=== PATIENT | female | born 1955 | race Caucasian/White ===

== ENCOUNTER 2016-07-18 10:39 | Day surgery (SDC) | payer OTHER ==
[~2016-07-18] VITALS: Ht 167.6 cm; Wt 82.5 kg
[~2016-07-18 10:39] MED LIST: OMEP20CA11 PO; Sodium Chloride LOK Flush 10 mL Syringe IV PRN; fentaNYL-PF 50 mCg/mL 2 mL Inj IVPUSH PRN
[2016-07-18] MEDS ORDERED: fentaNYL-PF 50 mCg/mL 2 mL Inj IVPUSH ONE (10:40)
[2016-07-18 11:00] VITALS: BP 119/75; PULSE 59; RESP 16; O2SAT 100
[2016-07-18] MEDS: 0.9% Sodium Chloride 1,000 ML IV SCH ×2 (11:05→11:35)
[2016-07-18 12:10] VITALS: BP 106/66; PULSE 57; RESP 16; O2SAT 92
[2016-07-18 12:20] VITALS: BP 95/58; PULSE 74; RESP 16; O2SAT 99
[2016-07-18 12:28] VITALS: BP 108/69; PULSE 60; RESP 16; O2SAT 99
--- NOTE | 2016-07-19 06:57 | ENDO ---
[address] [address] ENDOSCOPY PROCEDURE PATIENT: ROSHNI MUHAMMAD : 1955 MR#: [id number] ADMIT: 07/18/2016 JOB ID: [id number] DATE OF SERVICE: 07/18/2016 TYPE OF OPERATION: Esophagogastroduodenoscopy with biopsy. PREOPERATIVE DIAGNOSIS(ES): Dysphagia. POSTOPERATIVE DIAGNOSIS(ES): 1. Mild nonerosive gastritis. 2. Status post Chen fundoplication on retroflexion. 3. Mild bile reflux. ANESTHESIA: Fentanyl 100 mcg and Versed 5 mg IV administered. COMPLICATIONS: None. BLOOD LOSS: Minimal. DESCRIPTION OF PROCEDURE: After risks and benefits explained to the patient, informed consent was obtained. After anesthesia administered, upper endoscope was then inserted into the mouth, intubating into the esophagus, stomach, second portion of duodenum. Mucosa carefully examined. After procedure was done, the scope withdrawn and procedure terminated. FINDINGS: Upon inspection of the esophagus, the esophagus was normal without masses, ulcers, or lesions. There were no strictures or rings or concentric rings that was seen. Z-line located at 40 cm from incisors. Upon entering stomach, there was mild bile reflux that was seen. Mild nonerosive gastritis was also seen. No masses, ulcers, or lesions were recognized. Retroflexion showed status post Chen fundoplication intact. Duodenal bulb, first and second portions were normal. Biopsies were taken from duodenum, antrum, body, mid and distal esophagus. IMPRESSION: 1. Status post Chen fundoplication, intact. 2. Mild nonerosive gastritis. 3. Mild bile reflux. RECOMMENDATION: 1. Await pathology results. 2. Follow up in GI clinic as needed. 3. Referral to Speech and Swallow therapy for dysphagia.
--- NOTE | 2016-07-21 18:22 | PATH ---
SURGICAL PATHOLOGY Attending Physician:Anthony Guillermo MD CASE STATUS: Signed Out PATIENT NAME: ROSHNI MUHAMMAD PID: [id number] : 1955 DATE COLLECTED:07/18/2016 22:19 SPECIMEN: 1: Duodenum, Biopsy 2: Stomach, Antrum, Biopsy 3: Gastric, Biopsy 4: Esophagus, Biopsy 5: Esophagus, Biopsy CLINICAL HISTORY: 1). DUODENUM BIOPSY 2). ANTRUM BIOPSY 3). GASTRIC BODY BIOPSY 4). DISTAL ESOPHAGUS BIOPSY 5). MID-ESOPHAGEAL BIOPSY FINAL DIAGNOSIS: 1. Duodenum, Biopsy: Superficial portions of duodenal mucosa with no diagnostic abnormality. Negative for active inflammation, features of sprue, dysplasia, or malignancy. 2. Antrum Biopsy: Portions of gastric antral-type mucosa with no diagnostic abnormality. No definite H. pylori organisms identified by H&E stain. Negative for intestinal metaplasia, dysplasia, and malignancy. 3. Gastric Body, Biopsy: Portions of gastric body-type mucosa with no diagnostic abnormality. No definite H. pylori organisms identified by H&E stain. Negative for intestinal metaplasia, dysplasia, and malignancy. 4. Distal Esophagus, Biopsy: Portion of squamous mucosa with no diagnostic abnormality. Negative for dysplasia and malignancy. Detached fragment of inflamed columnar mucosa; negative for intestinal metaplasia, dysplasia, and malignancy. 5. Mid Esophageal Biopsy: Superficial portions of squamous epithelium with no diagnostic [id number]. Intraepithelial eosinophils are not increased. Negative for dysplasia and malignancy. ICD10: K29.7 GROSS DESCRIPTION: The specimen is received in five formalin filled containers labeled with the patient's name. 1). The specimen is sublabeled "duodenal" and consists of 2 portions of tissue which aggregate to 0.3 x 0.3 x 0.2 CM. The specimen is entirely submitted in cassette 1A. 2). The specimen is sublabeled "antrum" and consists of a 0.3 x 0.2 x 0.2 CM portion of tissue which is entirely submitted in cassette 2A. 3). The specimen is sublabeled "gastric body" and consists of 2 portions of tissue which aggregate to 0.3 x 0.3 x 0.2 CM. The specimen is entirely submitted in cassette 3A. 4). The specimen is sublabeled "distal esophagus" and consists of 2 tiny portions of tissue which aggregate to 0.2 x 0.2 x 0.2 CM. The specimen is entirely submitted in cassette 4A. 5). The specimen is sublabeled "mid esophageal" and consists of 3 portions of tissue which aggregate to 0.2 x 0.2 x 0.2 CM. The specimen is entirely submitted in cassette 5A. 07/18/2016 [facility] ICD-9 CODES: CPT CODES: 1: 01000 2: 41262 3: 32980 4: 69562 5: 19450 Electronically Signed Out Tia Scott MD [facility] [address], [place] [address] Technical component performed at [facility], [facility] [address], [place], [address]
== END 2016-07-18 23:59 | disposition home or self-care (01) ==
LOC: END 10:39
PROVIDERS: ATTEND Internal Medicine Gastroenterology
DX: K29.70 Gastritis, unspecified, without bleeding (principal); R13.10 Dysphagia, unspecified; K21.9 Gastro-esophageal reflux disease without esophagitis; Z98.890 Other specified postprocedural states; R19.7 Diarrhea, unspecified; Z86.018 Personal history of other benign neoplasm
CPT/HCPCS: 43239; G0500; J2250; J3010; J7030